=== PATIENT | male | born 1980 | race Hispanic/Latino ===

== ENCOUNTER 2024-08-01 21:50 | Emergency (ER) | payer BC ==
--- NOTE | 2024-08-01 22:28 | RAD REPORT ---
EXAM: CT brain without contrast HISTORY: Head injury status post trauma.. COMPARISON: None TECHNIQUE: Multiple contiguous axial images were obtained and a CT of the brain without contrast.. Sagittal and coronal reconstruction performed. Automated exposure control, adjustment of the mA and/or kV according to patient size, and/or iterative reconstruction. Unless otherwise specified, incidental f indings do not require dedicated imaging follow-up FINDINGS: An intracranial bleed is not seen Ventricles are normal caliber No extra-axial fluid collection noted No significant hypodensity within the brain No fluid within the visualized sinuses or mastoids noted. IMPRESSION: No acute intracranial abnormality noted. If the patient continues to have symptoms to suggest an acute intracranial abnormality then MRI of th e brain would be recommended.
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
[2024-08-02 00:19] VITALS: TEMP 97.9
[2024-08-02 00:22] VITALS: BP 105/56; O2SAT 96
[2024-08-02 01:11] LABS: Hepatitis B Core IgM Nonreactive (Nonreactive); Hepatitis B surface AG Interp. Nonreactive (Nonreactive); Hepatitis C Virus Ab Nonreactive (Nonreactive)
[2024-08-02 01:12] LABS: HBsAG Nonreactive Report Report
== END 2024-08-01 23:45 | disposition home or self-care (01) ==
LOC: ER 21:50
DX: S00.83XA Contusion of other part of head, initial encounter (principal); S10.83XA Contusion of other specified part of neck, initial encounter; Y04.2XXA Assault by strike against or bumped into by another person, initial encounter; F10.20 Alcohol dependence, uncomplicated
CPT/HCPCS: 36415; 87389; 80074; 70450; 70486; 70491; 76377; 99283; Q9967